=== PATIENT | female | born 1950 | race Caucasian/White ===

== ENCOUNTER 2023-07-01 14:22 | Outpatient (CLI) | payer MEDICARE | END 2023-07-01 14:23 | disposition home or self-care (01) | LOC: CSHCT 14:22 | PROVIDERS: ATTEND Internal Medicine Gastroenterology | DX: K86.2 Cyst of pancreas (principal) | CPT/HCPCS: 74183 ==

== ENCOUNTER 2024-05-17 14:08 | Outpatient (CLI) | payer MEDICARE | END 2024-05-17 14:09 | disposition home or self-care (01) | LOC: CSHMRI 14:08 | PROVIDERS: ATTEND Family Medicine Sports Medicine | DX: M54.50 Low back pain, unspecified (principal); M48.061 Spinal stenosis, lumbar region without neurogenic claudication | CPT/HCPCS: 72148 ==